=== PATIENT | female | born 1995 | race Caucasian/White ===

== ENCOUNTER 2018-08-22 08:38 | Emergency (ER) | payer OTHER ==
[~2018-08-22] VITALS: Ht 167.6 cm; Wt 77.1 kg
[~2018-08-22 08:38] MED LIST: ACETAMINOPHEN500 M1 PO; DOCUSATE SODIU100 MG PO; MINOCYCLINE HC100 M1; PRENATABS FA T1 EACH PO
== END 2018-08-22 12:42 | disposition home or self-care (01) ==
LOC: ER 08:38
DX: O47.02 False labor before 37 completed weeks of gestation, second trimester (principal); Z34.82 Encounter for supervision of other normal pregnancy, second trimester

== ENCOUNTER 2019-01-08 12:15 | Inpatient (IN) | payer OTHER ==
[~2019-01-08] VITALS: Ht 157.5 cm; Wt 90.7 kg
[2019-01-08] MEDS ORDERED: ZANTAC150 M3 PO (12:33)
== END 2019-01-10 14:04 | DRG 807 ==
LOC: OB/GYN 12:15 → LDR 12:15 → OB/GYN 20:13
PROVIDERS: ADMIT Obstetrics & Gynecology
PROC: 10E0XZZ Delivery of Products of Conception, External Approach (ICD-10-PCS; principal; 2019-01-08)
PROC: 0UQMXZZ Repair Vulva, External Approach (ICD-10-PCS; 2019-01-08)
PROC: 4A1HXFZ Monitoring of Products of Conception, Cardiac Rhythm, External Approach (ICD-10-PCS; 2019-01-08)
PROC: 3E033VJ Introduction of Other Hormone into Peripheral Vein, Percutaneous Approach (ICD-10-PCS; 2019-01-08)
DX: O71.82 Other specified trauma to perineum and vulva (principal); Z37.0 Single live birth; Z3A.39 39 weeks gestation of pregnancy

== ENCOUNTER 2021-02-13 09:17 | Emergency (ER) | payer OTHER ==
[~2021-02-13] VITALS: Ht 157.5 cm; Wt 86.2 kg
[~2021-02-13 09:17] MED LIST changes: +ZANTAC150 M3 PO
[2021-02-13] MEDS ORDERED: NORFLEX100MG PO (12:19)
== END 2021-02-13 12:32 | disposition home or self-care (01) ==
LOC: ER 09:17
DX: B34.9 Viral infection, unspecified (principal); Z11.52 Encounter for screening for COVID-19

== ENCOUNTER 2024-05-17 18:09 | Emergency (ER) | payer OTHER ==
[~2024-05-17] VITALS: Ht 154.9 cm; Wt 71.2 kg
[~2024-05-17 18:09] MED LIST changes: +NORFLEX100MG PO
[2024-05-17 18:43] VITALS: BP 108/60; O2SAT 99
[2024-05-17] MEDS ORDERED: KETOROLAC TROMETHAMINE 60 MG VIAL IM ONE ×2 (23:00→23:15)
== END 2024-05-18 00:13 | disposition home or self-care (01) ==
LOC: ER 18:11
DX: G44.209 Tension-type headache, unspecified, not intractable (principal)

== ENCOUNTER 2024-08-21 16:41 | Emergency (ER) | payer OTHER ==
[~2024-08-21] VITALS: Ht 154.9 cm; Wt 75.3 kg
[2024-08-21] MEDS ORDERED: GUAIFENESIN/DEXTROMETHORPHAN 10ML BLIST.PACK PO STA (18:27)
[2024-08-21] MEDS ORDERED: ACETAMINOPHEN 500 MG GEL..CAP PO STA (18:28)
[2024-08-21] MEDS ORDERED: CETIRIZINE HCL 5 MG/5 ML ML PO STA (18:28)
[2024-08-21 18:45] LABS: HEMATOCRIT 36.5 % (36.0-45.00); HEMOGLOBIN 12.3 g/dL (12.0-15.00); MEAN CELL VOLUME 87.8 fL (80.00-100.00); MEAN CORPUSCULAR HEMOGLOBIN 29.7 pg (27.00-32.0); MEAN CORPUSCULAR HGB CONC 33.8 g/dl (32.0-36.0); PLATELET COUNT 215 K/uL (150-450); RED BLOOD COUNT 4.15 M/uL (4.00-6.00); RED CELL DISTRIBUTION WIDTH 14.4 % (11.5-14.5)
[2024-08-21 19:30] LABS: CALCIUM 9.1 mg/dL (8.5-10.1); CREATININE SERUM 0.9 mg/dL (0.55-1.02); GFR 74.55; POTASSIUM 4.19 mEq/L (3.5-5.1)
[2024-08-21] MEDS ORDERED: OSEL75CA PO (19:36)
[2024-08-21] MEDS ORDERED: MUCINEX DM ER1 EACH PO (19:36)
[2024-08-21] MEDS ORDERED: AYR SALINE50 ML NASAL (19:36)
== END 2024-08-21 20:23 | disposition home or self-care (01) ==
LOC: ER 16:43
PROVIDERS: General Practice
DX: J10.1 Influenza due to other identified influenza virus with other respiratory manifestations (principal); Z20.822 Contact with and (suspected) exposure to COVID-19